=== PATIENT | female | born 1995 | race Caucasian/White ===

== ENCOUNTER 2025-03-02 12:46 | Emergency (ER) | payer BC, SELFPAY ==
[2025-03-02 13:02] VITALS: BP 133/88; PULSE 92; RESP 16; TEMP 37.2; O2SAT 97; BMI 29.0
--- NOTE | 2025-03-02 13:19 | EKG_ITS ---
[facility] Test Date: 2025-03-02 Pat Name: NAPOLEON EVERETT Department: Room: - Gender: Female Consultant: : 1995 Requested By: Meño Lynne (TAMIE) Order Number: [id number] Reading MD: Meño Lynne (RN STARS) Measurements Intervals [place] Rate: 83 P: 146 TN: 121 QRS: 119 QRSD: 86 T: 51 QT: 321 QTc: 378 Interpretive Statements SINUS RHYTHM ARM LEADS REVERSED [INVERTED P AND QRS IN I] No previous ECG available for comparison /store/S0/[id number].pdf
--- NOTE | 2025-03-02 13:20 | XR_ITS ---
Examination: CT brain head without contrast. 2-D sagittal coronal reconstructions Date and time of exam: March 02, 2025, 1333 hours INDICATIONS: Generalized head pain today CTDI: vol (mGy): 50.8 DLP: (mGycm): 1009 Technique: Multiple CT axial sections of the brain have been obtained, 5 mm slice thickness. Contrast has not been administered. 2-D sagittal, coronal reconstructions have been obtained Low dose protocols were performed. One or more of the following dose reduction techniques were used; automated exposure control, adjustment of the mA and/or KV according to patient size, use of iterative reconstruction technique. Findings: No significant ventricular enlargement. Intra-axial or extra-axial hemorrhage density is not seen. No mass effect or midline shift Basal cisterns are not remarkable. Fourth ventricle is midline. Cranial vault intact. Chronic pansinusitis Impression: Negative for acute hemorrhage, mass effect or midline shift Advise clinical correlation and follow-up accordingly
--- NOTE | 2025-03-02 13:22 | EDRME_ITS ---
Rapid Medical Screening Exam RME Arrival date/time: 03/02/25 12:46 29-year-old female presents to the [facility] department today for complaint of an episode of hypertension and dizziness today Chief Complaint: General Adult/Misc Complain Time Seen by Provider: 03/02/25 13:14 Vital signs: Vital Signs Temperature 98.9 F 03/02/25 13:02 Pulse Rate 92 03/02/25 13:02 Respiratory Rate 16 03/02/25 13:02 Blood Pressure 133/88 H 03/02/25 13:02 Pulse Oximetry (%) 97 03/02/25 13:02 Oxygen Delivery Method Room Air 03/02/25 13:02 Vital signs reviewed by provider: Yes Exam: On exam well-appearing does not appear ill or toxic Clinical Impression: Lab work and imaging obtained
[2025-03-02 13:51] LABS: Collection Type, Urine Clean Catch
[2025-03-02 13:58] LABS: Bilirubin,Urine Negative (Negative); Blood,Urine Negative (Negative); Clarity,Urine Clear (Clear/Hazy); Color,Urine Lt-Yellow (Lt Yel-Yel); Culture Indicated,Urine Not Indicated; Glucose, Urine Negative (Negative); Ketones,Urine Negative (Negative); Leukocyte Esterase,Urine Negative (Negative); Nitrite,Urine Negative (Negative); PH,Urine 6.0 (5.0-7.0); Protein,Urine Negative (Neg - Trace); RBC,Urine 1 /hpf (0-3); Specific Gravity,Urine 1.007 (1.001-1.035); Squamous Epithelial Cell,Urine 1 /hpf (0-5); Urobilinogen,Urine Negative mg/dL (0.0-1.0); WBC,Urine < 1 /hpf (0-5)
[2025-03-02 14:05] LABS: HCG Qualitative,Urine Negative
[2025-03-02 14:10] LABS: Basophils # (Auto) 0.1 Thou/mm3 (0.0-0.2); Basophils % (Auto) 1 % (0-2.5); Eosinophils # (Auto) 0.1 Thou/mm3 (0.0-0.5); Eosinophils % (Auto) 1 % (0-10); Hematocrit 46.0 % (36.0-46.0); Hemoglobin 15.4 g/dL (12.0-16.0); Immature Granulocytes Auto 0.05 Thou/mm3 (0.00-0.00); Lymphocytes # (Auto) 1.4 Thou/mm3 (1.0-4.8); Lymphocytes % (Auto) 11 % (10-50); Mean Corpuscular HGB Conc 33.5 g/dl (31.0-37.0); Mean Corpuscular Hemoglobin 29.3 pg (25.0-35.0); Mean Corpuscular Volume 88 fL (80-100); Monocytes # (Auto) 0.6 Thou/mm3 (0.0-0.8); Monocytes % (Auto) 5 % (0-12); Neutrophils # (Auto) 10.5 Thou/mm3 (1.8-7.7); Neutrophils % (Auto) 83 % (37-80); Nucleated Red Blood Cell # 0.00 Thou/mm3 (0.00-0.00); Nucleated Red Blood Cell % 0 /100 WBC (0); Platelet Count 321 Thou/mm3 (140-440); RDW Standard Deviation 43.3 fL (36.4-46.3); Red Blood Count 5.26 Miln/mm3 (4.00-5.20); White Blood Count 12.7 Thou/mm3 (3.6-11.0)
[2025-03-02 14:37] LABS: Alanine Aminotransferase 26 U/L (10-49); Albumin, Serum 5.1 gm/dL (3.5-5.0); Albumin/Globulin Ratio 1.8 (1.2-2.2); Alkaline Phosphatase 90 U/L (46-116); Anion Gap 7 (7-16); Aspartate Amino Transferase 23 U/L (0-34); BUN/Creatinine Ratio 6 Ratio (12-20); Bilirubin,Total 0.6 mg/dL (0.3-1.2); Blood Urea Nitrogen < 5 mg/dL (9-23); Calcium 9.7 mg/dL (8.3-10.6); Calcium (Corrected) 9.7 mg/dL (8.5-10.1); Carbon Dioxide 24.2 mMol/L (20.0-31.0); Chloride 109 mMol/L (98-107); Creatinine (Component) 0.8 mg/dL (0.6-1.3); Estimated Creatinine Clearance 110.8 mL/min (>60); Free T4 (Free Thyroxine) 1.31 ng/dL (0.89-1.76); Globulin 2.9 gm/dL (2.3-3.5); Glucose 111 mg/dL (74-106); Osmolality,Calculated 277 (275-295); Potassium 4.2 mMol/L (3.4-5.1); Sodium 140 mMol/L (136-145); Thyroid Stimulating Hormone 1.84 uIU/mL (0.55-4.78); Total Protein 8.0 gm/dL (5.7-8.2); Troponin I 0.023 ng/mL (0.0-0.045); eGFR > 60 See Note
[2025-03-02 17:23] VITALS: BP 139/86; PULSE 88; RESP 19; TEMP 36.8; O2SAT 99
--- NOTE | 2025-03-02 17:56 | PD.EDHA ---
ED Headache RME/HPI General Chief Complaint: General Adult/Misc Complain Stated Complaint: BP HIGH 189/99, HR 122 HERE, DOESN'T FEEL RIGHT Time Seen by Provider: 03/02/25 13:14 Arrival date/time: 03/02/25 12:46 RME / HPI RME / HPI Narrative: 03/02/25 12:46 29-year-old female presents to the [facility] department today for complaint of an episode of hypertension and dizziness today DR. SALAS MAIN ED EVALUATION: Patient with long-standing migraine headache with kaleidoscopic visual disturbance involving right eye with associated nausea and mild photosensitivity in which patient became quite anxious and checked blood pressure which was 180-190 systolic with heart rate of 130 bpm. Patient took Propanolol tablet with gradual standing improvement (of note Propanolol has been taken for prophylactic migraine previously). No antecedent fever, chills, vomiting, or diarrhea. PMH: Anxiety, Depression, HTN, Migraine Headache PSH: Tonsillectomy Allergies: Aripiprazole Social: Non smoker, non-drinker, no illicit drug abuse Exam: On exam well-appearing does not appear ill or toxic Impression: Lab work and imaging obtained Related Data Home Medications ?Medication ?Instructions ?Recorded ?Confirmed qpeoerft-hfi-Yt-FA 1 mg 1 tab PO QDAY 03/19/22 03/19/22 tablet Previous Rx's ?Medication ?Instructions ?Recorded docusate sodium 100 mg capsule 100 mg PO BID #60 caps 05/03/22 (Colace) hydrocodone 5 mg-acetaminophen 325 1 tab PO Q6H PRN pain #30 tabs 05/03/22 mg tablet labetalol 100 mg tablet 100 mg PO BID #60 tabs 05/03/22 lanolin 50 % topical ointment 1 applic topical TID PRN skin 05/03/22 irritation #15 tubes metoprolol succinate 25 mg 25 mg PO QDAY 03/02/25 tablet,extended release 24 hr Hypertension/headache disorder #30 tabs Allergies Allergy/AdvReac Type Severity Reaction Status Date / Time aripiprazole AdvReac Mild swelling Verified 03/02/25 12:49 Review of Systems Review of Systems Systems Reviewed: All systems reviewed, normal except as documented Past Medical History Past Medical History CARDIAC: Positive Cardiac Disorders and Hypertension (PREV TAKING PROPANOLOL) PSYCHO/SOCIAL: Positive Depression and Anxiety (ZOLOFT/ PROZAC/ PROPANOLOL) Family History FAMILY HISTORY: Positive Family Cardiac Disorders (MOTHER HIGH BLOOD PRESSURE) Surgical History SURGICAL: Positive Tonsillectomy (1996) ED Exam Narrative Physical exam: GEN. APPEARANCE: The patient is alert awake oriented X-3 headache nearly completely resolved, lying down comfortably, does not look ill/toxic. Patient has good eye contact. Patient is cooperative. VITALS: All vitals were reviewed and the pulse ox is 99%, which is normal according to my interpretation HEENT: Normocephalic, atraumatic and nontender. Pupils are equal and reactive; fundoscopic exam normal. Oral mucosa is moist. NECK: Supple, nontender, no meningismus, no JVD. There is no thyromegaly and no lymphadenopathy. CHEST: Nontender on palpation no deformity and no crepitus. CARDIOVASCULAR: Heart regular rhythm, no murmur or gallop rub or extra beats. LUNGS: Clear to auscultation bilaterally with symmetrical chest rise. No laboring tachypnea or wheezing. No intercostal subcostal retraction. No rales and no rhonchi. ABDOMEN: Soft, flat, nontender to palpation, no guarding or rebound tenderness. There are no abnormal masses palpated. No pulsatile masses or bruits. Active and normal bowel sounds. EXTREMITIES: Normal inspection and palpation. No edema. No cyanosis. Patient is able to move all 4 extremities well SKIN: Warm and dry, no rashes noted. MUSCULOSKELETAL: No lumbar or midline bony tenderness. There is no CVA tenderness. No paraspinal muscle spasm or tenderness. NEURO: Cranial nerves II through XII grossly intact. There are no focal neurologic deficits noted. GCS is 15 PSYCHIATRIC: Patient is in normal mood and affect, cooperative. LYMPHATICS: No major lymphadenopathy noted. Course Quality Measures none Orders Category Date Time Status EKG (ED ONLY) *Do not use* NOW Care 03/02/25 13:[address] head/brain wo con Stat Exams 03/02/25 13:20 Completed EKG (ED Only) Stat Exams 03/02/25 13:19 Draft CBC Stat Lab 03/02/25 13:59 Completed Comprehensive Metabolic Panel Stat Lab 03/02/25 13:59 Completed Free T4 (Free Thyroxine) Stat Lab 03/02/25 13:59 Completed HCG Qualitative,Urine Stat Lab 03/02/25 13:30 Completed TSH [Thyroid Stimulating Hormone] Stat Lab 03/02/25 13:59 Completed Troponin I Stat Lab 03/02/25 13:59 Completed UA, C/S IF [Urinalysis, C/S if Indicated] Stat Lab 03/02/25 13:30 Completed Vital Signs Vital signs: Vital Signs Temperature 98.9 F 03/02/25 13:02 Pulse Rate 92 03/02/25 13:02 Respiratory Rate 16 03/02/25 13:02 Blood Pressure 133/88 H 03/02/25 13:02 Pulse Oximetry (%) 97 03/02/25 13:02 Oxygen Delivery Method Room Air 03/02/25 13:02 Headache MDM Narrative MDM Narrative:: Scribe Attestation: Marilin Way, am scribing for and in the presence of Dr. Jenkins. Provider Notation: Although this document has been carefully reviewed, there may still be some phonetic and other typographical errors. These errors are purely grammatical due to imperfections in the software program and should not be construed in any way to compromise the substance of the patient's medical care during this visit. Patient with long-standing migraine headache with kaleidoscopic visual disturbance involving right eye with associated nausea and mild photosensitivity in which patient became quite anxious and checked blood pressure which was 180-190 systolic with heart rate of 130 bpm. Patient took Propanolol tablet with gradual standing improvement (of note Propanolol has been taken for prophylactic migraine previously). Please see PE finding. Laboratory markers, including, CBC and serum chemistries were essentially unremarkable. Patients blood pressure and heart rate gradually decreased to normal limits. Further inquiry indicates patient has been previously diagnosed with PIH and informed several times blood pressure was elevated, likely with underlying hypertension. [place] long-acting B-lee therapy with precautionary instructions issued. Final diagnosis includes Migraine headache resolved. Patient data External records reviewed:: [facility] previous records (Reviewed prior ED records from 12/19/21. Patient was seen for Pain of round ligament.) Clinical information provided by:: patient Social determinants that could affect healthcare access:: none Patient has the following chronic illnesses:: HTN, Depression, Anxiety How is presenting disease/condition affected by chronic disease/condition?: exacerbated by Evaluation data The following diagnostics were reviewed and interpreted by me:: lab results, radiology exam(s) and EKG tracing(s) (EKG at 13:19 shows normal sinus rhythm at 83, normal axis, no ectopy, no signs of acute ischemia, per my interpretation.) Lab and/or radiology exams considered but not ordered:: None Interpretation Summary: RADIOLOGY Head/Brain CT: Findings: No significant ventricular enlargement. Intra-axial or extra-axial hemorrhage density is not seen. No mass effect or midline shift Basal cisterns are not remarkable. Fourth ventricle is midline. Cranial vault intact. Chronic pansinusitis Impression: Negative for acute hemorrhage, mass effect or midline shift Advise clinical correlation and follow-up accordingly Medications / Prescriptions Medications or Prescriptions considered but not ordered:: None Medication administrations:: See above if any Consultations Consultation(s) initiated? (list below): No Diagnosis Differential diagnosis headache: migraine, tension headache, subarachnoid hemorrhage, headache, sinusitis and postconcussion syndrome Most likely diagnosis given after review of the tests above:: Migraine headache resolved, Accelerated HTN Admission Indicated Admission indicated?: not indicated Explain why admission is indicated or not indicated:: Patient does not meet admission criteria Admission Request Was there a request for admission?: No Disposition Plan Disposition Plan: Discharge Discharge Attestation Discharge Attestation: The patient and all family members were given an opportunity to ask questions and understood the discharge instructions. Discharge instructions specifically effects, indications for sooner follow up or return to the emergency department, and the expected course of current diagnosis. Patient condition: Stable Discharge Plan Plan Patient Disposition: HOME (Self Care) Discharge Disposition comment: Stable Patient condition on transfer: Stable Prescriptions/Referrals Prescriptions/Med Rec: New metoprolol succinate 25 mg tablet extended release 24 hr 25 mg PO QDAY Qty: 30 0RF No Action [id number]-FA 1 mg Tablet 1 tab PO QDAY hydrocodone-acetaminophen 5-325 mg tablet 1 tab PO Q6H MDD 6 PRN (Reason: pain) Qty: 30 0RF docusate sodium [Colace] 100 mg capsule 100 mg PO BID Qty: 60 0RF labetalol 100 mg tablet 100 mg PO BID Qty: 60 0RF Rx Instructions: Take 1 tab orally twice a day lanolin 50 % ointment 1 applic topical TID PRN (Reason: skin irritation) Qty: 15 0RF Referrals: No Primary/Family,Physician [Primary Care Provider] - In 1 week Problem List Clinical Impression: Accelerated hypertension, Migraine headache Impression comment: Accelerated hypertension Patient/Caregiver Discharge Instructions Discharge Activity: activity as tolerated Other Activity Instructions:: May engage in low to intensity workout Diet Instructions: Low-salt Education Materials: Controlling High Blood Pressure, Eating Heart-Healthy Foods, Blood Pressure Check Steps Additional Instructions: Begin metoprolol succinate at approximate 10 PM this evening. Low-salt diet. Blood pressure checks twice daily follow-up with primary care doctor in 7 to 10 days. Print Language: Armenian Stand Alone Forms: [facility]son Award Info., Patient Portal Info Letter
== END 2025-03-02 17:30 | disposition home or self-care (01) ==
PROVIDERS: Nurse Practitioner Primary Care; Emergency Provider Emergency Medicine
DX: I10 Essential (primary) hypertension (principal); G43.909 Migraine, unspecified, not intractable, without status migrainosus
CPT/HCPCS: 36415; 70450; 80053; 81001; 81025; 84439; 84443; 84484; 85025; 93005; 99283